=== PATIENT | female | born 1965 | race African-American/Black ===

== ENCOUNTER 2018-02-25 00:53 | Inpatient (IN) | payer MEDICAID ==
[~2018-02-25] VITALS: Ht 142.2 cm; Wt 82.1 kg
[~2018-02-25 00:53] MED LIST: DOXY-197 MT; GLYB2.5T4 MT; INSU100V3 SUBCUT; METR500T MT
[2018-02-25] MEDS ORDERED: ONDANSETRON HCL 4MG/2ML INJ IV STA (01:25)
[2018-02-25] MEDS ORDERED: MORPHINE SULFATE 4 MG/ML CPJ (NOT FOR IM USE) IV STA (01:25)
[2018-02-25] MEDS ORDERED: SODIUM CHLORIDE 0.9% 1,000 ML IV ONE (01:25)
[2018-02-25 02:14] LABS: BASOPHILS % 0.9 % (0.0-2.0); EOSINOPHILS % 1.8 % (0.0-5.0); HEMATOCRIT. 41.9 % (36.0-48.0); HEMOGLOBIN. 14.3 g/dL (12.0-16.0); LYMPHOCYTES % 39.1 % (20.0-50.0); MEAN CORPUSCULAR HEMOGLOBIN 30.4 pg (28.0-32.0); MEAN PLATELET VOLUME 10.3 fl (7.4-10.4); MONOCYTES % 8.9 % (2.0-8.0); NEUTROPHILS % 49.3 % (40.0-76.0); PLATELET 289 x1000/uL (130-400); RED BLOOD CELL COUNT 4.71 mill/uL (4.2-5.4); RED CELL DISTRIBUTION WIDTH 14.2 % (11.6-14.6)
[2018-02-25 03:21] LABS: CHLORIDE 103 mEq/L (98-107)
[2018-02-25 03:30] LABS: BETA HYDROXYBUTYRATE 0.1 mMol/L (0.0-0.3)
[2018-02-25] MEDS ORDERED: MAGNESIUM/ALUMINUM HYDROXIDE/SIMETHICONE 30ML UDC PO PRN (05:00)
[2018-02-25] MEDS ORDERED: ACETAMINOPHEN 325MG TABLET PO PRN (05:00)
[2018-02-25] MEDS ORDERED: DEXTROSE 50% WATER 50ML SYRINGE IV PRN (05:00)
[2018-02-25] MEDS ORDERED: DIPHENHYDRAMINE 50MG/ML VIAL IV PRN (05:00)
[2018-02-25] MEDS ORDERED: ONDANSETRON HCL 4MG/2ML INJ IV PRN (05:00)
[2018-02-25] MEDS ORDERED: CLONIDINE 0.1MG TABLET PO PRN (05:00)
[2018-02-25] MEDS ORDERED: HYDROCODONE/ACETAMINOPHEN 5/325MG TABLET PO PRN (05:15)
[2018-02-25] MEDS ORDERED: IBUPROFEN 400MG TABLET PO PRN (05:15)
[2018-02-25 05:20] VITALS: BP 101/60
[2018-02-25 06:00] LABS: CLARITY URINE CLOUDY (CLEAR); COLOR URINE YELLOW (YELLOW); KETONES URINE NEGATIVE (NEGATIVE); LEUKOCYTE ESTERASE URINE NEGATIVE (NEGATIVE); NITRITE URINE NEGATIVE (NEGATIVE); OCCULT BLOOD URINE NEGATIVE (NEGATIVE); PH URINE 7.5 (4.5-8.0); PROTEIN URINE NEGATIVE (NEGATIVE); SPECIFIC GRAVITY URINE 1.025 (1.005-1.030); UROBILINOGEN URINE 0.2 E.U./dL (0.2-1.0)
[2018-02-25] MEDS ORDERED: INSU100I28 SQ (06:24)
[2018-02-25] MEDS: BLOOD SUGAR DIAGNOSTIC STRIP TEST SCH ×4 (07:40→21:33)
[2018-02-25 08:00] VITALS: BP 97/63
[2018-02-25] MEDS: NICOTINE 14MG PATCH TD SCH (08:29)
[2018-02-25] MEDS: OMEPRAZOLE 20MG CAPSULE EXTENDED RELEASE PO SCH ×2 (08:29→21:34)
[2018-02-25] MEDS: SODIUM CHLORIDE 0.9% 1,000 ML IV SCH ×2 (08:29→15:23)
[2018-02-25] MEDS ORDERED: PNEUMOCOCCAL 23-VAL P-SAC VAC 0.5 ML IM ONE (08:30)
[2018-02-25] MEDS ORDERED: INFLUENZA VIRUS VACCINE 0.5ML SYR IM ONE (08:30)
[2018-02-25] MEDS: MORPHINE SULFATE 4 MG/ML CPJ (NOT FOR IM USE) IV PRN ×2 (08:31→16:47)
[2018-02-25] MEDS: INSULIN LISPRO 100 UNITS/ML SUBCUT SCH ×4 (08:32→21:47)
[2018-02-25] MEDS ORDERED: INSULIN GLARGINE UD 100 UNITS/ML SYR SUBCUT SCH (10:00)
[2018-02-25] MEDS: INSULIN GLARGINE UD 100 UNITS/ML SYR SUBCUT SCH (10:24)
[2018-02-25 12:00] VITALS: BP 98/59
[2018-02-25 14:30] VITALS: BP_SYST 107; BP_SYST 89; BP_SYST 99; BP_DIAS 65; BP_DIAS 75
[2018-02-25 20:00] VITALS: BP 111/60
[2018-02-25] MEDS ORDERED: HYDROCODONE/APAP 7.5/325MG 1 TAB TABLET PO PRN (21:00)
[2018-02-25] MEDS ORDERED: TEMAZEPAM 15MG CAPSULE PO PRN (21:15)
[2018-02-25] MEDS: GABAPENTIN 300MG CAPSULE PO SCH (21:34)
[2018-02-25] MEDS: GUAIFENESIN 600MG ER TABLET PO SCH (21:34)
[2018-02-25] MEDS: NAPROXEN 375MG TABLET PO SCH (23:18)
[2018-02-26] VITALS: BP 123/77
[2018-02-26] MEDS: IPRATROPIUM/ALBUTEROL 0.5-3(2.5)MG/3ML NEB HHN PRN ×2 (03:12→12:32)
[2018-02-26 04:00] VITALS: BP 145/80
[2018-02-26] MEDS: GABAPENTIN 300MG CAPSULE PO SCH ×2 (06:48→16:47)
[2018-02-26] MEDS: BLOOD SUGAR DIAGNOSTIC STRIP TEST SCH ×2 (06:48→16:49)
[2018-02-26] MEDS: SODIUM CHLORIDE 0.9% 1,000 ML IV SCH ×2 (06:49→12:00)
[2018-02-26 07:09] LABS: BASOPHILS % 0.2 % (0.0-2.0); EOSINOPHILS % 2.7 % (0.0-5.0); HEMATOCRIT. 40.8 % (36.0-48.0); HEMOGLOBIN. 13.5 g/dL (12.0-16.0); LYMPHOCYTES % 44.4 % (20.0-50.0); MEAN CORPUSCULAR HEMOGLOBIN 29.6 pg (28.0-32.0); MEAN CORPUSCULAR VOLUME 89.4 fL (81.0-99.0); MEAN PLATELET VOLUME 10.4 fl (7.4-10.4); MONOCYTES % 11.1 % (2.0-8.0); NEUTROPHILS % 41.6 % (40.0-76.0); PLATELET 189 x1000/uL (130-400); RED BLOOD CELL COUNT 4.56 mill/uL (4.2-5.4); RED CELL DISTRIBUTION WIDTH 14.3 % (11.6-14.6)
[2018-02-26 07:20] LABS: CHLORIDE 110 mEq/L (98-107)
[2018-02-26 07:25] LABS: PHOSPHORUS 3.9 mg/dL (2.5-4.9)
[2018-02-26] MEDS ORDERED: GLIPIZIDE 5MG XL TABLET PO SCH (08:10)
[2018-02-26 08:15] VITALS: BP 98/69
[2018-02-26] MEDS ORDERED: MAGNESIUM 2 G PREMIX 50 ML IV ONE (09:45)
[2018-02-26] MEDS: GUAIFENESIN 600MG ER TABLET PO SCH (09:55)
[2018-02-26] MEDS: NICOTINE 14MG PATCH TD SCH (09:55)
[2018-02-26] MEDS: OMEPRAZOLE 20MG CAPSULE EXTENDED RELEASE PO SCH (09:55)
[2018-02-26] MEDS: NAPROXEN 375MG TABLET PO SCH (09:55)
[2018-02-26] MEDS: INSULIN GLARGINE UD 100 UNITS/ML SYR SUBCUT SCH (09:59)
[2018-02-26] MEDS: INSULIN LISPRO 100 UNITS/ML SUBCUT SCH ×2 (10:05→18:47)
[2018-02-26] MEDS ORDERED: MAGNESIUM 2 G PREMIX 50 ML IV SCH (10:30)
[2018-02-26] MEDS ORDERED: MAGNESIUM SULFATE 2 GM in SODIUM CHLORIDE 0.9% 50 ML IV SCH (11:00)
[2018-02-26 12:00] VITALS: BP 104/58
[2018-02-26 16:00] VITALS: BP 107/57
[2018-02-26] MEDS: MORPHINE SULFATE 4 MG/ML CPJ (NOT FOR IM USE) IV PRN (16:42)
[2018-02-26 19:53] VITALS: BP 120/71
== END 2018-02-26 20:35 | disposition home or self-care (01) | DRG 48 ==
LOC: ER 00:53 → EDBEDREQ 02:04 → EDBEDREQTM 02:04 → 7WST 04:26 → ENRESERV 04:26
PROVIDERS: ADMIT Internal Medicine; ATTEND Internal Medicine
DX: G90.8 Other disorders of autonomic nervous system (principal); E11.40 Type 2 diabetes mellitus with diabetic neuropathy, unspecified; E66.01 Morbid (severe) obesity due to excess calories; F17.200 Nicotine dependence, unspecified, uncomplicated; R07.89 Other chest pain; W18.30XA Fall on same level, unspecified, initial encounter; I10 Essential (primary) hypertension; Z88.8 Allergy status to other drugs, medicaments and biological substances; Z82.49 Family history of ischemic heart disease and other diseases of the circulatory system; Z83.3 Family history of diabetes mellitus; Z79.899 Other long term (current) drug therapy; Z68.41 Body mass index [BMI] 40.0-44.9, adult; Y93.89 Activity, other specified; Y92.89 Other specified places as the place of occurrence of the external cause; Y99.8 Other external cause status
CPT/HCPCS: 36415; 70450; 71045; 72125; 80048; 80053; 81003; 82010; 82962; 83036; 83690; 83735; 84100; 84484; 85025; 90686; 90732; 93005; 93970; 96361; 96374; 96375; 97162; 99285; J1815; J2270; J2405; J3475; J7030; J7620